=== PATIENT | male | born 1975 | race Caucasian/White ===

== ENCOUNTER 2024-05-03 22:11 | Outpatient (REF) | payer BC, SELFPAY | END 2024-05-03 22:12 | disposition home or self-care (01) | LOC: NPINS 22:11 | PROVIDERS: PCP Family Medicine; Visit Provider Physician Assistant | DX: L40.0 Psoriasis vulgaris (principal) | CPT/HCPCS: 86480 ==

== ENCOUNTER 2025-05-04 16:08 | Outpatient (CLI) | payer BC, SELFPAY | END 2025-05-04 16:09 | disposition home or self-care (01) | LOC: NPINS 16:08 | PROVIDERS: Visit Provider Physician Assistant | DX: L40.0 Psoriasis vulgaris (principal) | CPT/HCPCS: 86480 ==